=== PATIENT | male | born 2000 | race Caucasian/White ===

== ENCOUNTER 2025-01-04 12:12 | Emergency (ER) | payer MEDICAID ==
[~2025-01-04] VITALS: Ht 165.1 cm; Wt 68.0 kg
[2025-01-04 12:19] VITALS: O2SAT 100
[2025-01-04] MEDS ORDERED: SULF1TAB48 MT (16:02)
[2025-01-04] MEDS ORDERED: CEPH500C2 MT (16:02)
[2025-01-04] MEDS: SULFAMETHOXAZOLE/TRIMETHOPRIM 800/160MG TABLET PO ONE (16:13)
[2025-01-04] MEDS: CEPHALEXIN 250MG CAPSULE PO ONE (16:14)
[2025-01-04] MEDS: HYDROCODONE/ACETAMINOPHEN 10/325MG TABLET PO ONE (16:14)
[2025-01-04 16:18] VITALS: BP 134/70; PULSE 69; RESP 18; TEMP 36.6; O2SAT 99
== END 2025-01-04 16:19 | disposition home or self-care (01) ==
LOC: ER 12:12
DX: L02.01 Cutaneous abscess of face (principal)
CPT/HCPCS: 10060; 99284